=== PATIENT | female | born 1990 | race Caucasian/White ===

== ENCOUNTER 2016-08-02 11:25 | Emergency (ER) | payer SELFPAY ==
[2016-08-02 11:35] VITALS: BP 122/79; PULSE 85; TEMP 98.1; BMI 28.3
--- NOTE | 2016-08-02 12:19 | PDOC ---
History of Present Illness - General Chief Complaint: Pain, Acute Stated Complaint: LUMP ON LT FOOT Time Seen by Provider: 08/02/16 11:53 History Source: Patient Exam Limitations: No Limitations - History of Present Illness Initial Comments: 08/02/16 12:01 left foot lump for 3 days. denies trauma no fever or redness. 08/02/16 13:44 Past History - Past Medical History Allergies/Adverse Reactions: Allergies Allergy/AdvReac Type Severity Reaction Status Date / Time No Known Allergies Allergy Verified 08/02/16 11:30 Home Medications: Ambulatory Orders NK [No Known Home Medication] 08/02/16 Anemia: Yes Asthma: No Cancer: No Cardiac Disorders: No CVA: No COPD: No CHF: No Dementia: No Diabetes: No GI Disorders: No Disorders: No HTN: No Hypercholesterolemia: No Liver Disease: No Suicide Attempt (Hx): No Seizures: No Thyroid Disease: No - Surgical History Abdominal Surgery: No Appendectomy: No Cardiac Surgery: No Cholecystectomy: No Lung Surgery: No Neurologic Surgery: No Orthopedic Surgery: No - Reproductive History (#): 2 Para: 1 Cervical CA: No Dysfunctional Uterine Bleeding: No Ectopic : No Endometrial CA: No Polycystic Ovaries: No Therapeutic (s) & number: No Tubal Ligation: No Spontaneous : 0 - Immunization History Immunization Up to Date: Yes - Psycho/Social/Smoking Cessation Hx Anxiety: No Suicidal Ideation: No Smoking Status: No Smoking History: Never smoked Have you smoked in the past 12 months: No Number of Cigarettes Smoked Daily: 0 Cigars Per Day: 0 Hx Alcohol Use: No Drug/Substance Use Hx: No Substance Use Type: None Hx Substance Use Treatment: No *Physical Exam - Vital Signs Last Vital Signs Temp Pulse Resp BP Pulse Ox 98.1 F 85 16 122/79 99 08/02/16 11:31 08/02/16 11:31 08/02/16 11:31 08/02/16 11:31 08/02/16 11:31 - Physical Exam General Appearance: Yes: Nourished, Appropriately Dressed HEENT: positive: EOMI, PAL Extremity: positive: Normal Capillary Refill, Tender (left foot medial tenderness between great toe and mid foot, positive non fluctuant 1cm tender lump on the bony prominence) ED Treatment Course - RADIOLOGY Radiology Studies Ordered: Category Date Time Status FOOT-LEFT [RAD] Stat Radiology 08/02/16 11:57 Ordered Medical Decision Making - Medical Decision Making 08/02/16 12:41 cc: lump to foot , no trauma no evidence of infection , possible bone spur will xray to r/o fracture 08/02/16 13:[address] emmie wrap and refer to podiatry for further and to PMD for further care *DC/Admit/Observation/Transfer Diagnosis at time of Disposition: Foot pain Qualifiers: Laterality: left Qualified Code(s): M79.672 - Pain in left foot - Discharge Dispostion Disposition: HOME Condition at time of disposition: Good - Referrals Referrals: Martin Hendrix MD [Staff Physician] - - Patient Instructions Additional Instructions: follow up with the distributor operator for follow up use the emmie wrap while awake remove to sleep take motrin as needed for pain
== END 2016-08-02 13:04 | disposition home or self-care (01) ==
LOC: JERFT 11:25
DX: M79.672 Pain in left foot (principal); D64.9 Anemia, unspecified
CPT/HCPCS: 73630-TC-LT; 99281-25

== ENCOUNTER 2020-01-01 00:24 | Emergency (ER) | payer OTHER ==
--- NOTE | 2020-01-01 01:01 | PDOC ---
History of Present Illness - General Chief Complaint: Cold Symptoms Stated Complaint: CHEST PAIN,FEVER,SORE THROAT - History of Present Illness Initial Comments: 29 yo female with PMH of anemia, recurrent ear infections, gastritis presents with fatigue and fever since this morning. She measured her fever at 105 at home then took a tylenol. She also has a headache, cp, sob, sore throat, and nausea. Her chest pain started after she ate dinner, radiates to her back, and is worse when she lays down. She denies any sick contact. She has taken tylenol at home for the fever. Past History - Medical History Allergies/Adverse Reactions: Allergies Allergy/AdvReac Type Severity Reaction Status Date / Time No Known Allergies Allergy Verified 01/01/20 00:40 Home Medications: Ambulatory Orders Neomycin/Polymyxn/Hc [Cortisporin Otic Solution -] 5 drop AD TID 5 Days #1 bottle 01/23/18 Amoxicillin/Potassium Clav [Augmentin 500-125 Tablet] 1 each PO BID 7 Days #14 tablet 01/01/20 Anemia: Yes Asthma: No Cancer: No Cardiac Disorders: No CVA: No COPD: No CHF: No Dementia: No Diabetes: No GI Disorders: No Disorders: No HTN: No Hypercholesterolemia: No Liver Disease: No Seizures: No Thyroid Disease: No - Surgical History Abdominal Surgery: No Appendectomy: No Cardiac Surgery: No Cholecystectomy: No Lung Surgery: No Neurologic Surgery: No Orthopedic Surgery: No - Reproductive History Is Patient Now?: No (#): 2 Para: 1 Cervical CA: No Dysfunctional Uterine Bleeding: No Ectopic : No Endometrial CA: No Polycystic Ovaries: No Therapeutic (s) & number: No Tubal Ligation: No Spontaneous : 0 - Immunization History Immunization Up to Date: Yes - Psycho-Social/Smoking History Smoking Status: No Smoking History: Never smoked Have you smoked in the past 12 months: No Number of Cigarettes Smoked Daily: 0 Cigars Per Day: 0 Information on smoking cessation initiated: No - Substance Abuse Hx (Audit-C & DAST Scrn) How often the patient has a drink containing alcohol: Never Score: In Men: 4 or > Positive; In Women: 3 or > Positive: 0 Screen Result (Pos requires Nsg. Audit-10AR): Negative In the last yr the pt used illegal drug/Rx for NonMed reason: No Score: Yes response is considered Positive: 0 Screen Result (Positive result requires Nsg. DAST-10): Negative Review of Systems - Review of Systems Constitutional: Yes: Chills, Fever, Malaise, Weakness HEENTM: Yes: Other (sore throat). No: Recent change in vision, Double Vision Respiratory: No: Cough, Shortness of Breath Cardiac (ROS): Yes: Chest Pain. No: Palpitations, Syncope ABD/GI: Yes: Nausea. No: Constipated, Diarrhea, Vomiting : No: Burning, Dysuria Neurological: Yes: Headache. No: Ataxia, Dizziness Psychiatric: No: Anxiety, Depression, Emotional Problems Endocrine: No: Intolerance to Cold, Intolerance to Heat *Physical Exam - Vital Signs Last Vital Signs Temp Pulse Resp BP Pulse Ox 103.0 F H 113 H 22 H 131/83 98 01/01/20 00:37 01/01/20 00:37 01/01/20 00:37 01/01/20 00:37 01/01/20 00:37 - Physical Exam General Appearance: Yes: Appropriately Dressed. No: Apparent Distress HEENT: positive: EOMI, Normal Voice, Pharyngeal Erythema, Tonsillar Exudate. negative: Rhinorrhea, Sinus Tenderness, TM Bulging, TM Dull Neck: negative: Tender, Rigid Respiratory/Chest: positive: Lungs Clear, Normal Breath Sounds. negative: Respiratory Distress Cardiovascular: positive: Regular Rhythm, Regular Rate, S1, S2 Gastrointestinal/Abdominal: positive: Normal Bowel Sounds, Flat, Soft. negative: Tender Extremity: positive: Normal Capillary Refill, Normal Inspection, Normal Range of Motion Integumentary: positive: Normal Color, Dry, Warm Neurologic: positive: Fully Oriented, Alert, Normal Mood/Affect ED Treatment Course - LABORATORY CBC & Chemistry Diagram: 01/01/20 09:05 01/01/20 02:45 Medical Decision Making - Medical Decision Making 29 yo female with PMH of anemia, recurrent ear infections, gastritis presents with fever, fatigue, and a sore throat. Most likely secondary to pharyngits PE reveals (+) SIRS criteria: fever, tachycardia Elevated LA @ 2.4 Given IV tylenol for fever Given 2L IV Fluids Pharyngitis Bilateral pharyngeal erythema with exudates Rapid strep test is negative UTI UA positive LE UC pending CTA ordered to assess for COVID/PE Signout given to night team Discharge - Discharge Information Problems reviewed: Yes Clinical Impression/Diagnosis: Sepsis Qualifiers: Sepsis type: sepsis due to unspecified organism Sepsis acute organ dysfunction status: without acute organ dysfunction Qualified Code(s): A41.9 - Sepsis, unspecified organism UTI (urinary tract infection) Qualifiers: Urinary tract infection type: acute cystitis Hematuria presence: with hematuria Qualified Code(s): N30.01 - Acute cystitis with hematuria Pharyngitis Qualifiers: Pharyngitis/tonsillitis etiology: unspecified etiology Qualified Code(s): J02.9 - Acute pharyngitis, unspecified Condition: Improved Disposition: HOME - Admission No - Additional Discharge Information Prescriptions: Amoxicillin/Potassium Clav [Augmentin 500-125 Tablet] 1 each PO BID 7 Days #14 tablet - Follow up/Referral - Patient Discharge Instructions Patient Printed Discharge Instructions: DI for Urinary Tract Infection (UTI) Additional Instructions: You have a urine and throat infection Take the prescribed Augmentin as directed Take tylenol or ibuprofen if you have pain. Drink lots of water Follow up with your primary care doctor - Post Discharge Activity
[2020-01-01 01:05] VITALS: BMI 34.6
--- NOTE | 2020-01-01 01:11 | PDOC ---
Attending Attestation - Resident Resident Name: Ludmila Gottlieb - ED Attending Attestation I have performed the following: I have examined & evaluated the patient, The case was reviewed & discussed with the resident, I agree w/resident's findings & plan - HPI HPI: 01/01/20 03:25 see resident hpi - Physicial Exam PE: 01/01/20 03:25 see resident exam - Medical Decision Making 01/01/20 03:25 29-year-old female with fever sore throat and chest discomfort Chest x-ray shows possible increased interstitial markings bilaterally Due to elevated white blood cell count and fever on arrival plan for labs, CTA of the chest, IV fluids Disposition pending results Discharge - Discharge Information Problems reviewed: Yes Clinical Impression/Diagnosis: Fever - Follow up/Referral - Patient Discharge Instructions - Post Discharge Activity
[2020-01-01] MEDS ORDERED: SODIUM CHLORIDE 1,000 ML IV STA ×2 (02:08→06:18)
[2020-01-01 03:13] LABS: HEMATOCRIT 43.4 % (32.4-45.2); HEMOGLOBIN 14.1 GM/dL (10.7-15.3); MCH 26.6 pg (25.7-33.7); MCHC 32.6 g/dl (32.0-36.0); MEAN CELL VOLUME 81.5 fl (80-96); MEAN PLT VOLUME 7.2 fl (7.5-11.1); PLATELET COUNT 365 K/MM3 (134-434); RBC 5.32 M/mm3 (3.60-5.2); RDW 14.2 % (11.6-15.6); WHITE BLOOD COUNT 14.9 K/mm3 (4.0-10.0)
[2020-01-01 03:40] LABS: ALK PHOS 121 U/L (45-117); ANION GAP 8 MMOL/L (8-16); BILIRUBIN,TOTAL 0.4 mg/dL (0.2-1); BLOOD UREA NITROGEN 10.1 mg/dL (7-18); CHLORIDE 102 mmol/L (98-107); CO2 26 mmol/L (21-32); CREATININE 0.9 mg/dL (0.55-1.3); GLUCOSE,RANDOM 118 mg/dL (74-106); POTASSIUM 3.9 mmol/L (3.5-5.1); SGOT/AST 32 U/L (15-37); SGPT/ALT 53 U/L (13-61); SODIUM 136 mmol/L (136-145); TOT PROT 9.1 g/dl (6.4-8.2)
[2020-01-01 04:44] LABS: VENOUS BASE EXCESS -1.7 mmol/L (-2-2); VENOUS O2 SATURATION 50.5 % (70-80); VENOUS PCO2 40.3 mmHg (38-52); VENOUS PH 7.379 (7.310-7.410)
[2020-01-01 05:04] LABS: EPI CELLS >36 /uL (0-25.1); HYALINE CASTS 2 /uL (0-3.1); URINE APPEARANCE CLEAR; URINE BACTERIA 292 /uL (0-1359); URINE BILIRUBIN NEGATIVE (NEGATIVE); URINE COLOR YELLOW; URINE GLUCOSE (UA) NEGATIVE (NEGATIVE); URINE KETONE NEGATIVE (NEGATIVE); URINE LEUK ESTERASE 1+ (NEGATIVE); URINE NITRITE NEGATIVE (NEGATIVE); URINE PROTEIN NEGATIVE (NEGATIVE); URINE RBC 12 /uL (0-23.9); URINE UROBILINOGEN 0.2 mg/dL (0.2-1.0); URINE WBC 78 /uL (0-25.8)
[2020-01-01] MEDS ORDERED: ACETAMINOPHEN 1000 MG/100 ML VIAL (NON FORMULARY) IVPB ONE (06:16)
[2020-01-01] MEDS ORDERED: ACETAMINOPHEN INJECTION 100 ML IVPB ONE (06:21)
[2020-01-01] MEDS ORDERED: AMOX TR/POT CLAV 875MG/125MG TABLETS (FP) PO ONE (07:29)
--- NOTE | 2020-01-01 07:38 | PDOC ---
*Physical Exam - Vital Signs Last Vital Signs Temp Pulse Resp BP Pulse Ox 101.5 F H 85 18 106/64 100 01/01/20 10:19 01/01/20 10:19 01/01/20 10:19 01/01/20 10:19 01/01/20 10:19 <Troy Phipps - Last Filed: 01/01/20 10:28> - Vital Signs Last Vital Signs Temp Pulse Resp BP Pulse Ox 103.0 F H 102 H 17 99/63 98 01/01/20 06:35 01/01/20 06:35 01/01/20 06:35 01/01/20 06:35 01/01/20 06:35 <Bird Neff - Last Filed: 01/01/20 11:21> ED Treatment Course - LABORATORY CBC & Chemistry Diagram: 01/01/20 09:05 01/01/20 02:45 - ADDITIONAL ORDERS Additional order review: Laboratory Results 01/01/20 01/01/20 01/01/20 09:05 04:30 04:20 VBG pH POC VBG pCO2 POC VBG pO2 VBG HCO3 VBG O2 Sat (Michelle) VBG Base Excess Sodium Potassium Chloride Carbon Dioxide Anion Gap BUN Creatinine Est GFR (CKD-EPI)AfAm Est GFR (CKD-EPI)NonAf Random Glucose Lactic Acid 1.1 2.4 H* Calcium Total Bilirubin AST ALT Alkaline Phosphatase Troponin I Total Protein Albumin Serum , Qual Urine Color Yellow Urine Appearance Clear Urine pH 5.0 D Ur Specific [place] 1.018 Urine Protein Negative Urine Glucose (UA) Negative Urine Ketones Negative Urine Blood 3+ H Urine Nitrite Negative Urine Bilirubin Negative Urine Urobilinogen 0.2 Ur Leukocyte Esterase 1+ H Urine WBC (Auto) 78 Urine RBC (Auto) 12 Urine Casts (Auto) 2 U Epithel Cells (Auto) >36 Urine Bacteria (Auto) 292 01/01/20 01/01/20 01/01/20 04:20 02:45 02:45 VBG pH 7.379 POC VBG pCO2 40.3 POC VBG pO2 27.6 L VBG HCO3 23.3 VBG O2 Sat (Michelle) 50.5 L VBG Base Excess -1.7 Sodium 136 Potassium 3.9 Chloride 102 Carbon Dioxide 26 Anion Gap 8 BUN 10.1 Creatinine 0.9 Est GFR (CKD-EPI)AfAm 100.85 Est GFR (CKD-EPI)NonAf 87.01 Random Glucose 118 H Lactic Acid Calcium 9.0 Total Bilirubin 0.4 AST 32 ALT 53 Alkaline Phosphatase 121 H Troponin I < 0.02 Total Protein 9.1 H Albumin 4.0 Serum , Qual Negative Urine Color Urine Appearance Urine pH Ur Specific [place] Urine Protein Urine Glucose (UA) Urine Ketones Urine Blood Urine Nitrite Urine Bilirubin Urine Urobilinogen Ur Leukocyte Esterase Urine WBC (Auto) Urine RBC (Auto) Urine Casts (Auto) U Epithel Cells (Auto) Urine Bacteria (Auto) 01/01/20 01/01/20 09:05 02:45 RBC 4.43 5.32 H MCV 81.4 81.5 MCHC 32.7 32.6 RDW 14.0 14.2 D MPV 7.3 L 7.2 L Neutrophils % 82.2 D Lymphocytes % 10.8 D Monocytes % 6.6 Eosinophils % 0.0 D Basophils % 0.4 - Medications Given in the ED: ED Medications Discontinued Medications Generic Name Dose Route Start Last Admin Trade Name Doris PRN Reason Stop Dose Admin Acetaminophen 1,000 mg 01/01/20 06:16 01/01/20 06:26 Ofirmev Injection - IVPB 01/01/20 06:17 1,000 mg ONCE ONE Administration Amoxicillin/Clavulanate Potassium 1 tab 01/01/20 07:29 01/01/20 07:54 Augmentin - 875mg Tablet PO 01/01/20 07:30 1 tab ONCE ONE Administration Sodium Chloride 1,000 mls @ 1,000 mls/hr 01/01/20 02:08 01/01/20 04:25 Normal Saline - IV 01/01/20 03:07 1,000 mls/hr ASDIR STA Administration Sodium Chloride 1,000 mls @ 1,000 mls/hr 01/01/20 06:18 01/01/20 07:07 Normal Saline - IV 01/01/20 07:17 1,000 mls/hr ASDIR STA Administration <Troy Phipps - Last Filed: 01/01/20 10:28> - LABORATORY CBC & Chemistry Diagram: 01/01/20 09:05 01/01/20 02:45 - ADDITIONAL ORDERS Additional order review: Laboratory Results 01/01/20 01/01/20 01/01/20 04:30 04:20 04:20 VBG pH 7.379 POC VBG pCO2 40.3 POC VBG pO2 27.6 L VBG HCO3 23.3 VBG O2 Sat (Michelle) 50.5 L VBG Base Excess -1.7 Sodium Potassium Chloride Carbon Dioxide Anion Gap BUN Creatinine Est GFR (CKD-EPI)AfAm Est GFR (CKD-EPI)NonAf Random Glucose Lactic Acid 2.4 H* Calcium Total Bilirubin AST ALT Alkaline Phosphatase Troponin I Total Protein Albumin Serum , Qual Urine Color Yellow Urine Appearance Clear Urine pH 5.0 D Ur Specific [place] 1.018 Urine Protein Negative Urine Glucose (UA) Negative Urine Ketones Negative Urine Blood 3+ H Urine Nitrite Negative Urine Bilirubin Negative Urine Urobilinogen 0.2 Ur Leukocyte Esterase 1+ H Urine WBC (Auto) 78 Urine RBC (Auto) 12 Urine Casts (Auto) 2 U Epithel Cells (Auto) >36 Urine Bacteria (Auto) 292 01/01/20 01/01/20 02:45 02:45 VBG pH POC VBG pCO2 POC VBG pO2 VBG HCO3 VBG O2 Sat (Michelle) VBG Base Excess Sodium 136 Potassium 3.9 Chloride 102 Carbon Dioxide 26 Anion Gap 8 BUN 10.1 Creatinine 0.9 Est GFR (CKD-EPI)AfAm 100.85 Est GFR (CKD-EPI)NonAf 87.01 Random Glucose 118 H Lactic Acid Calcium 9.0 Total Bilirubin 0.4 AST 32 ALT 53 Alkaline Phosphatase 121 H Troponin I < 0.02 Total Protein 9.1 H Albumin 4.0 Serum , Qual Negative Urine Color Urine Appearance Urine pH Ur Specific [place] Urine Protein Urine Glucose (UA) Urine Ketones Urine Blood Urine Nitrite Urine Bilirubin Urine Urobilinogen Ur Leukocyte Esterase Urine WBC (Auto) Urine RBC (Auto) Urine Casts (Auto) U Epithel Cells (Auto) Urine Bacteria (Auto) 01/01/20 02:45 RBC 5.32 H MCV 81.5 MCHC 32.6 RDW 14.2 D MPV 7.2 L - Medications Given in the ED: ED Medications Discontinued Medications Generic Name Dose Route Start Last Admin Trade Name Freq PRN Reason Stop Dose Admin Acetaminophen 1,000 mg 01/01/20 06:16 01/01/20 06:26 Ofirmev Injection - IVPB 01/01/20 06:17 1,000 mg ONCE ONE Administration Sodium Chloride 1,000 mls @ 1,000 mls/hr 01/01/20 02:08 01/01/20 04:25 Normal Saline - IV 01/01/20 03:07 1,000 mls/hr ASDIR STA Administration Sodium Chloride 1,000 mls @ 1,000 mls/hr 01/01/20 06:18 01/01/20 07:07 Normal Saline - IV 01/01/20 07:17 1,000 mls/hr ASDIR STA Administration <Bird Neff - Last Filed: 01/01/20 11:21> Medical Decision Making - Medical Decision Making 01/01/20 10:28 clinically well appearing and improved, ambulating comfortable, speaking full sentences. Likely UTI with possible pharyngitis, received abx. unchanged leukocytosis with otherwise normal diff, chem wnl. lactate improved. febrile after tylenol, will give toradol as anti-pyretic. reassess temp, dispo, pt requesting d/c after defervesces <Troy Phipps - Last Filed: 01/01/20 10:28> - Medical Decision Making 01/01/20 07:38 chest CTA - no sign of PE/effusions/infiltrates lactic 2.4 --- 29 yo female with PMH of anemia, recurrent ear infections, gastritis presents with fatigue, sore throat, fever, chest pain Sepsis (fever, tachycardia) 2/2 UTI vs viral pharyngitis. Neg strep test. No sign of PNA or covid or PE on CTA repeat lactic 1.1 from 2.4, pt feels better, repeat temp 100.0. Given 2L fluids, tylenol, augmentin DC w augmentin, supportive care, PCP f/u <Bird Neff - Last Filed: 01/01/20 11:21> Discharge <Troy Phipps - Last Filed: 01/01/20 10:28> - Discharge Information Problems reviewed: Yes <Bird Neff - Last Filed: 01/01/20 11:21> - Discharge Information Clinical Impression/Diagnosis: Sepsis Qualifiers: Sepsis type: sepsis due to unspecified organism Sepsis acute organ dysfunction status: without acute organ dysfunction Qualified Code(s): A41.9 - Sepsis, unspecified organism UTI (urinary tract infection) Qualifiers: Urinary tract infection type: acute cystitis Hematuria presence: with hematuria Qualified Code(s): N30.01 - Acute cystitis with hematuria Pharyngitis Qualifiers: Pharyngitis/tonsillitis etiology: unspecified etiology Qualified Code(s): J02.9 - Acute pharyngitis, unspecified Condition: Improved Disposition: HOME - Additional Discharge Information Prescriptions: Amoxicillin/Potassium Clav [Augmentin 500-125 Tablet] 1 each PO BID 7 Days #14 tablet - Patient Discharge Instructions Patient Printed Discharge Instructions: DI for Urinary Tract Infection (UTI) Additional Instructions: You have a urine and throat infection Take the prescribed Augmentin as directed Take tylenol or ibuprofen if you have pain. Drink lots of water Follow up with your primary care doctor
[2020-01-01] MEDS ORDERED: AMOX TR/POT CLAV 875MG/125MG TABLETS (FP) ONE (07:39)
[2020-01-01 09:25] LABS: BASO % 0.4 % (0-2.0); HEMATOCRIT 36.1 % (32.4-45.2); HEMOGLOBIN 11.8 GM/dL (10.7-15.3); LYMPH % 10.8 % (8-40); MCH 26.6 pg (25.7-33.7); MCHC 32.7 g/dl (32.0-36.0); MEAN CELL VOLUME 81.4 fl (80-96); MEAN PLT VOLUME 7.3 fl (7.5-11.1); MONO % 6.6 % (3.8-10.2); NEUT % 82.2 % (42.8-82.8); PLATELET COUNT 301 K/MM3 (134-434); RBC 4.43 M/mm3 (3.60-5.2); WHITE BLOOD COUNT 14.7 K/mm3 (4.0-10.0)
[2020-01-01] MEDS ORDERED: KETOROLAC TROMETHAMINE 30 MG/1 ML VIAL IVPUSH ONE (10:28)
[2020-01-01] MEDS ORDERED: KETOROLAC TROMETHAMINE 30 MG/1 ML VIAL ONE (10:30)
[2020-01-01 11:26] VITALS: BP 91/54; PULSE 90; TEMP 100
--- NOTE | 2020-01-02 13:12 | EKG ---
Test Reason : Blood Pressure : / mmHG Vent. Rate : 100 BPM Atrial Rate : 100 BPM P-R Int : 138 ms QRS Dur : 088 ms QT Int : 326 ms P-R-T Axes : 038 036 028 degrees QTc Int : 420 ms NORMAL SINUS RHYTHM NORMAL ECG Confirmed by RAMIN SHUKLA MD ([id number]) on 01/02/2020 1:11:36 PM Referred By: Confirmed By:RAMIN SHUKLA MD
== END 2020-01-01 11:32 | disposition home or self-care (01) ==
LOC: JER 00:24
PROC: 3E0333Z Introduction of Anti-inflammatory into Peripheral Vein, Percutaneous Approach (ICD-10-PCS; principal; 2020-01-01)
PROC: 3E033GC Introduction of Other Therapeutic Substance into Peripheral Vein, Percutaneous Approach (ICD-10-PCS; 2020-01-01)
PROC: 3E0337Z Introduction of Electrolytic and Water Balance Substance into Peripheral Vein, Percutaneous Approach (ICD-10-PCS; 2020-01-01)
DX: A41.9 Sepsis, unspecified organism (principal); N30.01 Acute cystitis with hematuria; J02.9 Acute pharyngitis, unspecified
CPT/HCPCS: 36415; 71045-TC-FY; 71275-TC; 80053; 81003; 82803; 83605; 84484; 84703; 85025; 85027; 87040; 87070; 87077; 87086; 87880; 93005; 93010; 99285-25; J0131; Q9967; U0003

== ENCOUNTER 2022-06-08 19:36 | Emergency (ER) | payer OTHER ==
[2022-06-08 20:08] VITALS: BP 117/81; PULSE 92; RESP 18; TEMP 98; BMI 31.2
[2022-06-08 21:38] LABS: BASO % 0.5 % (0-2.0); EOS % 0.9 % (0-4.5); HEMATOCRIT 41.3 % (32.4-45.2); HEMOGLOBIN 13.5 GM/dL (10.7-15.3); LYMPH % 24.7 % (8-40); MCHC 32.7 g/dl (32.0-36.0); MEAN CELL VOLUME 82.5 fl (80-96); MEAN PLT VOLUME 6.7 fl (7.5-11.1); MONO % 7.3 % (3.8-10.2); NEUT % 66.6 % (42.8-82.8); PLATELET COUNT 458 10^3/uL (134-434); RBC 5.01 M/mm3 (3.60-5.2); RDW 13.9 % (11.6-15.6)
[2022-06-08 21:47] LABS: EPI CELLS >36 /uL (0-25.1); HYALINE CASTS 1 /uL (0-3.1); PH,URINE 7.5 (5.0-8.0); URINE APPEARANCE CLOUDY; URINE BACTERIA 109 /uL (0-1359); URINE BILIRUBIN NEGATIVE (NEGATIVE); URINE COLOR YELLOW; URINE GLUCOSE (UA) NEGATIVE (NEGATIVE); URINE KETONE 1+ (NEGATIVE); URINE LEUK ESTERASE TRACE (NEGATIVE); URINE NITRITE NEGATIVE (NEGATIVE); URINE PROTEIN TRACE (NEGATIVE); URINE RBC 13 /uL (0-23.9); URINE WBC 13 /uL (0-25.8)
[2022-06-08 21:58] LABS: HCG,QUALITATIVE URINE Positive
[2022-06-08 22:01] LABS: ALBUMIN 4.1 g/dl (3.4-5.0); BLOOD UREA NITROGEN 13.3 mg/dL (7-18); CALCIUM 9.3 mg/dL (8.5-10.1)
[2022-06-08 22:04] LABS: CREATININE 0.8 mg/dL (0.55-1.3)
[2022-06-08 22:06] LABS: TOT PROT 8.8 g/dl (6.4-8.2)
[2022-06-08 22:12] LABS: BILIRUBIN,TOTAL 0.3 mg/dL (0.2-1)
[2022-06-08] MEDS ORDERED: ACETAMINOPHEN 325 MG TABLET (FP) PO ONE (22:33)
[2022-06-08] MEDS ORDERED: ACETAMINOPHEN 500 MG TABLET (FP) ONE (22:34)
== END 2022-06-08 23:52 | disposition home or self-care (01) ==
LOC: JER 19:36
DX: O20.0 Threatened abortion (principal); O46.91 Antepartum hemorrhage, unspecified, first trimester; Z3A.01 Less than 8 weeks gestation of pregnancy
CPT/HCPCS: 36415; 76830-TC; 80053; 81003; 84702; 84703; 85025; 86850; 86900; 86901; 99284-25